=== PATIENT | male | born 1940 | race Caucasian/White ===

== ENCOUNTER 2023-03-25 08:46 | Day surgery (SDC) | payer OTHER ==
[~2023-03-25] VITALS: Ht 170.2 cm; Wt 93.3 kg
[~2023-03-25 08:46] MED LIST: ACETAMINOPHEN500 MG; AMLO5; ASPIRIN REGIMEN81 MG PO; ERGO50000 PO; FISH1000 PO; K-TAB ER20 ME1; LATA.005SO BOTHEYES; Lactated Ringer's 1,000 ML IV ONE; SIMV40; TIMOPTIC 0.5% BOTHEYES; ZESTORETIC 20-1 EAC3; propofoL 0 ML IV ONE
[2023-03-25 09:16] VITALS: BP 166/94
[2023-03-25] MEDS ORDERED: Lactated Ringer's 1,000 ML IV ONE (09:42)
--- NOTE | 2023-03-25 10:06 | NUR ---
03/25/23 1006 JUVENAL LIMON PT BROUGHT TO ENDO SU[address] And PLACED ON 3LEAD AND VS MONITORING. PT'S HR IS FOUND TO BE LOW IN 33 - 41, DR. ANDRE ORDERED 12 LEAD EKG. PT WAS FOUND TO BE IN NEW ONSET A FIB. DISCUSSION WITH PATIENT BY DR. ANDRE AFTER CONSULTING WITH ANESTHESIA. CASE CANCELLED TODAY.
--- NOTE | 2023-03-25 10:42 | NUR ---
03/25/23 1041 JUVENAL LIMON IN PRE OP IT WAS NOTICED PT'S HR WAS BRADYCARDIAC (48-51 BPM). ADVISED AND REQUESTED GLYCO DURING CASE. WE DECIDED TO WAIT UNTIL PROCEDURE TO SEE PATIENT'S REACTION TO SEDATION. UPON BRINGING PT TO ENDO SUITE, PT WAS FOUND TO HAVE IRREGULAR HR, BOUNCING FROM 33-50, AND IRREGULAR ON [address] ANDRE ORDERED 12 LEAD EKG IN ENDO SUITE 1. DEISI SANTOYO TO ENDO SUITE TO ASSIST THIS RN WITH EKG. PT FOUND TO BE IN A.FIB, NEW ONSET. PT DENIES HX OF CARDIAC ANOMALY OR PAST CARDIAC SX. DISCUSSION WITH PATIENT AND BY . PT ADVISED TO PRESENT TO ER FOR EVALUATION. PT ESCORTED TO ER VIA WC WITH BY RN, YARELIS.
[2023-03-25] MEDS ORDERED: XARELTO1 EAC1 PO (14:21)
== END 2023-03-25 09:53 | disposition home or self-care (01) ==
LOC: ORSCSDS 08:46
PROVIDERS: Specialist
PROC: 0DJ08ZZ Inspection of Upper Intestinal Tract, Via Natural or Artificial Opening Endoscopic (ICD-10-PCS; principal; 2023-03-25 10:15)
DX: R13.10 Dysphagia, unspecified (principal); I48.91 Unspecified atrial fibrillation; E87.6 Hypokalemia; Z53.9 Procedure and treatment not carried out, unspecified reason; Z79.899 Other long term (current) drug therapy; Z79.82 Long term (current) use of aspirin; I12.9 Hypertensive chronic kidney disease with stage 1 through stage 4 chronic kidney disease, or unspecified chronic kidney disease; N18.30 Chronic kidney disease, stage 3 unspecified; Z85.46 Personal history of malignant neoplasm of prostate; Z85.89 Personal history of malignant neoplasm of other organs and systems; Z87.891 Personal history of nicotine dependence; I10 Essential (primary) hypertension; E78.5 Hyperlipidemia, unspecified; Z88.5 Allergy status to narcotic agent; Z88.6 Allergy status to analgesic agent
CPT/HCPCS: 71046; 80053; 83735; 83880; 84443; 84484; 85025; 93005; 93010; 93246; 96365; 99285-25; A9270; J2704; J3480; J7030; J7120

== ENCOUNTER 2023-03-25 10:19 | Emergency (ER) | payer OTHER ==
[~2023-03-25] VITALS: Ht 170.2 cm; Wt 95.2 kg
[~2023-03-25 10:19] MED LIST changes: -Lactated Ringer's 1,000 ML IV ONE; -propofoL 0 ML IV ONE
[2023-03-25 11:19] LABS: BASOPHILS ABSOLUTE AUTO 0.14 K/mm3 (0.00-0.23); BASOPHILS PERCENT AUTO 2 % (0-2); EOSINOPHILS ABSOLUTE AUTO 0.98 K/mm3 (0.00-0.68); EOSINOPHILS PERCENT AUTO 12 % (0-6); Hematocrit 44.8 % (37.0-53.0); IMMATURE GRAN ABSOLUTE AUTO 0.02 K/mm3 (0.00-0.10); IMMATURE GRAN PERCENT AUTO 0 % (0-1); LYMPHOCYTES ABSOLUTE AUTO 1.37 K/mm3 (0.84-5.20); LYMPHOCYTES PERCENT AUTO 17 % (21-46); MONOCYTES ABSOLUTE AUTO 0.89 K/mm3 (0.16-1.47); MONOCYTES PERCENT AUTO 11 % (4-13); Mean Corpuscular HGB 31.4 pg (26.0-34.0); Mean Corpuscular HGB Conc 35.7 g/dL (31.5-36.5); Mean Corpuscular Volume 88 fL (80-100); Mean Platelet Volume 10.9 fL (9.1-12.4); NEUTROPHILS ABSOLUTE AUTO 4.81 K/mm3 (1.96-9.15); NEUTROPHILS PERCENT AUTO 59 % (41-73); Platelet Count 271 K/mm3 (150-400); RDW Coefficient Variation 13.8 % (11.7-14.2); RDW Standard Deviation 44.2 fL (35.1-46.3); White Blood Cell Count 8.21 K/mm3 (4.00-11.30)
[2023-03-25 11:37] LABS: Albumin, Blood 3.8 g/dL (3.4-5.0); Bilirubin, Total 2.1 mg/dL (0.1-1.0); Bun/Creatinine Ratio 23.1 (12.0-20.0); Calcium, Blood 9.6 mg/dL (8.5-10.1); Creatinine, Blood 1.17 mg/dL (0.60-1.20); Potassium, Blood 3.3 mmol/L (3.5-5.5); Total Protein, Blood 7.8 g/dL (6.4-8.2)
[2023-03-25] MEDS ORDERED: Potassium Chloride 20 MEQ TabCR PO ONE (13:25)
[2023-03-25] MEDS ORDERED: Potassium Chl 10MEQ/Water100ML 100 ML IV ONE (13:25)
[2023-03-25] MEDS ORDERED: NS 1,000 ML IV ONE (14:02)
[2023-03-25] MEDS ORDERED: Rivaroxaban 10 MG Tab PO ONE (14:15)
[2023-03-25] MEDS ORDERED: XARELTO1 EAC1 PO (14:21)
[2023-03-25 15:27] VITALS: BP 169/98
== END 2023-03-25 15:36 | disposition home or self-care (01) ==
LOC: ER 10:19
PROVIDERS: Student in an Organized Health Care Education/Training Program
DX: I48.91 Unspecified atrial fibrillation (principal); E87.6 Hypokalemia; Z87.891 Personal history of nicotine dependence; I10 Essential (primary) hypertension; E78.5 Hyperlipidemia, unspecified; Z79.82 Long term (current) use of aspirin; Z79.899 Other long term (current) drug therapy; Z88.5 Allergy status to narcotic agent; Z88.6 Allergy status to analgesic agent
CPT/HCPCS: 71046; 80053; 83735; 83880; 84443; 84484; 85025; 93246; 96365; 99285-25; A9270; J3480; J7030

== ENCOUNTER 2023-08-25 08:47 | Day surgery (SDC) | payer OTHER ==
[~2023-08-25] VITALS: Ht 170.2 cm; Wt 94.4 kg
[~2023-08-25 08:47] MED LIST changes: +Balanced Salt Epinephrine Irrigation Solution 500 mL IR SCH; +ELIQUIS5 M2 PO; +Lidocaine HCl/Pf 1% 5 ML VIAL XX SCH; +Moxifloxacin HCL 0.5 MG/0.1 ML 0.4MLSYR RIGHTEYE SCH; +NS 500 ML IV ONE; +PHENYLEPHRINE\\TROPICAMIDE\\TETRACAINE OPHTHALMIC DILATING SOLN RIGHTEYE PRN; +Povidone-Iodine 450 DROP/30 ML Solution RIGHTEYE SCH; +Triamcinolone Inj Susp 40 MG / ML 1ML Vial INJ SCH; +Triamcinolone Inj Susp 40 MG / ML 1ML Vial ONE; +XARELTO1 EAC1 PO
[2023-08-25] MEDS ORDERED: NS 500 ML IV ONE (09:04)
[2023-08-25] MEDS ORDERED: FentaNYL Citrate 50 MCG/ML 2 ML Injection ONE (09:25)
[2023-08-25] MEDS ORDERED: Midazolam HCl 1MG / ML 2ML Vial ONE (09:25)
[2023-08-25] MEDS ORDERED: Tetracaine HCl 0.5% Opth Soln 15 ml RIGHTEYE ONE (10:05)
[2023-08-25 10:33] VITALS: BP 129/81
--- NOTE | 2023-08-25 10:42 | NUR ---
08/25/23 1042 Tio Perry PT ADVISED TO MONITOR B/P AT HOME AND FOLLOW UP WITH PXCP, IF NEEDED. HE DENIED CP, NAUESA, WEAKNESS, SOB, DIZZINESS, AND OTHER CARDIAC SYMPTOMS. NONE WERE OBSERVED.
== END 2023-08-25 10:35 | disposition home or self-care (01) ==
LOC: ORSCSDS 08:47
PROVIDERS: Ophthalmology
PROC: 08RJ3JZ Replacement of Right Lens with Synthetic Substitute, Percutaneous Approach (ICD-10-PCS; principal; 2023-08-25 10:00)
DX: H25.11 Age-related nuclear cataract, right eye (principal); I12.9 Hypertensive chronic kidney disease with stage 1 through stage 4 chronic kidney disease, or unspecified chronic kidney disease; N18.9 Chronic kidney disease, unspecified; I48.91 Unspecified atrial fibrillation; I25.10 Atherosclerotic heart disease of native coronary artery without angina pectoris; Z79.01 Long term (current) use of anticoagulants; Z79.899 Other long term (current) drug therapy; Z87.891 Personal history of nicotine dependence
CPT/HCPCS: J2250; J3010; J3301; J7040; V2632